=== PATIENT | male | born 1980 | race Caucasian/White ===

== ENCOUNTER 2020-11-13 22:13 | Inpatient (IN) | payer OTHER ==
[~2020-11-13] VITALS: Ht 172.7 cm; Wt 99.2 kg
[2020-11-13 22:42] LABS: BASOPHILS ABSOLUTE AUTO 0.05 K/mm3 (0.00-0.23); BASOPHILS PERCENT AUTO 0 % (0-2); EOSINOPHILS PERCENT AUTO 2 % (0-6); Hematocrit 43.6 % (37.0-53.0); IMMATURE GRAN ABSOLUTE AUTO 0.06 K/mm3 (0.00-0.10); IMMATURE GRAN PERCENT AUTO 1 % (0-1); LYMPHOCYTES ABSOLUTE AUTO 2.03 K/mm3 (0.84-5.20); LYMPHOCYTES PERCENT AUTO 18 % (21-46); MONOCYTES ABSOLUTE AUTO 0.46 K/mm3 (0.16-1.47); MONOCYTES PERCENT AUTO 4 % (4-13); Mean Corpuscular HGB 27.7 pg (26.0-34.0); Mean Corpuscular HGB Conc 32.1 g/dL (31.5-36.5); Mean Corpuscular Volume 86 fL (80-100); Mean Platelet Volume 12.3 fL (9.1-12.4); NEUTROPHILS ABSOLUTE AUTO 8.46 K/mm3 (1.96-9.15); NEUTROPHILS PERCENT AUTO 75 % (41-73); Platelet Count 208 K/mm3 (150-400); RDW Standard Deviation 40.9 fL (35.1-46.3); Red Blood Cell Count 5.05 M/mm3 (4.30-5.90); White Blood Cell Count 11.26 K/mm3 (4.00-11.30)
[2020-11-13 22:57] LABS: Alanine Aminotransfer (ALT/SGP 75 U/L (12-78); Albumin, Blood 3.4 g/dL (3.4-5.0); Alk Phos 79 U/L (50-136); Anion Gap 8 mmol/L (6-16); Aspartate Aminotrans (AST/SGOT 54 U/L (12-37); Bilirubin, Total 0.7 mg/dL (0.1-1.0); Blood Urea Nitrogen 16 mg/dL (8-24); Bun/Creatinine Ratio 13.6 (12.0-20.0); CO2, Blood 26 mmol/L (21-32); Calcium, Blood 8.1 mg/dL (8.5-10.1); Chloride, Blood 105 mmol/L (98-108); Creatinine, Blood 1.18 mg/dL (0.60-1.20); Ethanol (Alcohol), Blood, Med <3 mg/dL; Globulin, Blood 3.4 g/dL (2.2-4.0); Glomerular Filtration Rate >60 (60-); Glucose, Blood 252 mg/dL (70-99); Potassium, Blood 3.6 mmol/L (3.5-5.5); Salicylate <1.7 mg/dL (2.8-20.0); Sodium, Blood 139 mmol/L (136-145); Total Protein, Blood 6.8 g/dL (6.4-8.2)
[2020-11-13 23:10] LABS: Acetaminophen, Random <2.0 ug/mL (10.0-30.0)
[2020-11-13 23:46] LABS: CPK Creatine Kinase 201 U/L (39-308)
[2020-11-14 00:22] LABS: Influenza A, PCR NEGATIVE (NEGATIVE); Influenza B, PCR NEGATIVE (NEGATIVE); Resp Syncytial Virus, PCR NEGATIVE (NEGATIVE); SARS-Cov-2 (COVID-19) PCR, MMC NEGATIVE (NEGATIVE)
--- NOTE | 2020-11-14 02:30 | NUR ---
PT ADMITTED TO ICU 13, FROM ER FOR POSSIBLE UNINTENTIONAL OD. PT SISTER LI IS W PT AND HELPED W ADMIT PROCESS, PT DRIFTS OF TO SLEEP DURING CONVERSATION. PT AROUSES TO VOICE, ORIENTED TO HOSP, BUT DOESNT REMEMBER WHAT HAPPENED, DOES NOT ADMIT TO INGESTING ANY MEDS. ON 2L NC, VSS, MONITOR SHOWS NSR. CO EXTREME THIRST, STATES "I'M SO THIRSTY I'M GOING TO THROW UP" EXPLAINED TO PT IMPORTANCE OF AIRWAY SAFETY, CONCERN THAT HE ASPIRATED EARLIER IN DAY. ICE CHIPS GIVEN. BED ALARM ENGAGED FOR PT SAFETY.
--- NOTE | 2020-11-14 06:00 | NUR ---
PT ALERT, DOESNT REMEMBER EARLIER EVENTS, GIVEN CUP OF ICE WATER. VSS, [address] GONZALEZ IN TO SEE PT AND DIET ORDERED, AND STATUS CHANGED. WILL REPORT TO DAY SHIFT.
[2020-11-14 06:11] LABS: Source, Urine Catheter
[2020-11-14 06:17] LABS: Bilirubin, Urine Neg (Neg); Blood, Urine Neg (Neg); Glucose Qualitative, Urine 3+ (Neg); Ketones, Urine Neg (Neg); Leukocyte Esterase, Urine 1+ (Neg); Nitrite, Urine Neg (Neg); Protein, Urine 2+ (Neg); Specific Gravity, Urine 1.025 (1.003-1.022); Urobilinogen, Urine NORM (Normal)
[2020-11-14 06:35] LABS: Appearance, Urine Clear (Clear); Color, Urine Yellow (P-Yellow)
[2020-11-14 06:37] LABS: Bacteria Mod /hpf; Red Blood Cells, Urine 0-2 /hpf (0-2); Squamous Epithelial Cells Rare /hpf (Few)
[2020-11-14 06:38] LABS: U Amphetamine Screen DETECTED; U Barbituate Screen Not Detected; U Benzodiazapine Screen DETECTED; U Cannabinoids Screen Not Detected; U Cocaine Screen Not Detected; U Methadone Screen Not Detected; U Methamphetamine Screen DETECTED; U Opiates Screen Not Detected; U Phencyclidine Screen Not Detected
[2020-11-14 06:39] LABS: U Buprenorphine Screen Not Detected; U Oxycodone Screen Not Detected; U Propoxyphene Screen Not Detected
[2020-11-14 07:00] LABS: BASOPHILS ABSOLUTE AUTO 0.05 K/mm3 (0.00-0.23); BASOPHILS PERCENT AUTO 0 % (0-2); EOSINOPHILS ABSOLUTE AUTO 0.01 K/mm3 (0.00-0.68); EOSINOPHILS PERCENT AUTO 0 % (0-6); Hematocrit 45.8 % (37.0-53.0); IMMATURE GRAN ABSOLUTE AUTO 0.09 K/mm3 (0.00-0.10); IMMATURE GRAN PERCENT AUTO 1 % (0-1); LYMPHOCYTES ABSOLUTE AUTO 0.82 K/mm3 (0.84-5.20); LYMPHOCYTES PERCENT AUTO 4 % (21-46); MONOCYTES ABSOLUTE AUTO 0.88 K/mm3 (0.16-1.47); MONOCYTES PERCENT AUTO 5 % (4-13); Mean Corpuscular HGB 28.4 pg (26.0-34.0); Mean Corpuscular HGB Conc 32.8 g/dL (31.5-36.5); Mean Corpuscular Volume 87 fL (80-100); Mean Platelet Volume 11.7 fL (9.1-12.4); NEUTROPHILS ABSOLUTE AUTO 17.34 K/mm3 (1.96-9.15); NEUTROPHILS PERCENT AUTO 90 % (41-73); Platelet Count 221 K/mm3 (150-400); RDW Coefficient Variation 13.2 % (11.7-14.2); RDW Standard Deviation 41.1 fL (35.1-46.3); Red Blood Cell Count 5.28 M/mm3 (4.30-5.90); White Blood Cell Count 19.19 K/mm3 (4.00-11.30)
--- NOTE | 2020-11-14 07:14 | NUR ---
Received report from Arnoldo IRENE. Patient is awake in bed and first thing ask for water and took him a cup. He is on RA and sats >90%. He is alert and oriented and is able to communicate all answers and communicate his needs. He has bilateral 20ga IV's in AC's. He is having NS at 75 infusing in RAC. He has urinal at bedside and is able to use appropriately. He denies trying to overdose on any meds and remembers very little of event.
[2020-11-14 07:22] LABS: Alanine Aminotransfer (ALT/SGP 69 U/L (12-78); Albumin, Blood 3.3 g/dL (3.4-5.0); Albumin/Globulin Ratio 0.9 (0.8-1.8); Alk Phos 76 U/L (50-136); Anion Gap 5 mmol/L (6-16); Aspartate Aminotrans (AST/SGOT 38 U/L (12-37); Blood Urea Nitrogen 14 mg/dL (8-24); Bun/Creatinine Ratio 17.1 (12.0-20.0); CO2, Blood 26 mmol/L (21-32); Chloride, Blood 109 mmol/L (98-108); Creatinine, Blood 0.82 mg/dL (0.60-1.20); Globulin, Blood 3.7 g/dL (2.2-4.0); Glomerular Filtration Rate >60 (60-); Glucose, Blood 114 mg/dL (70-99); Potassium, Blood 4.3 mmol/L (3.5-5.5); Sodium, Blood 140 mmol/L (136-145)
--- NOTE | 2020-11-14 09:57 | NUR ---
Patient has been resting in room after breakfast that he tolerated 100%. VSS. Dr Ram by and saw patient and asked for Psych to come by vipul elliott. Patient remaisn cooperative and communicable with care.
--- NOTE | 2020-11-14 12:00 | NUR ---
Patient sitting up in bed tolerating lunch. Andra Sharma in room doing safety contract. He has been pleasant and cooperative. Denies any needs.
--- NOTE | 2020-11-14 16:07 | NUR ---
Dr Mcdowell in room with patient and he is being cooperative with tx. NS at 75 ml/hr with intermitent Abx. He is tolerating liquids and food well. Mostly sleeping t/o day.
--- NOTE | 2020-11-14 17:19 | NUR ---
PT RECEIVED FROM ICU ARLET TRIPATHI. STATES TIRED. TO ROOM 1650 REPORT RECEIVED FROM ANTHONY KLINE RN PRIOR TO TRANSFER.
--- NOTE | 2020-11-14 18:15 | NUR ---
PT PLEASANT SINCE TRANSFER TO ROOM FROM ICU. HAS SLEPT SOME. AWAKENS EASILY. ATE FULL PLATE FOOD FOR DINNER. REQUESTED SECOND HELPING. ORDERED. BED IN LOW POSITION, CALL LITE IN REACH, CALLS APPROP
[2020-11-15 05:02] LABS: BASOPHILS ABSOLUTE AUTO 0.06 K/mm3 (0.00-0.23); BASOPHILS PERCENT AUTO 0 % (0-2); EOSINOPHILS ABSOLUTE AUTO 0.18 K/mm3 (0.00-0.68); EOSINOPHILS PERCENT AUTO 1 % (0-6); Hematocrit 39.5 % (37.0-53.0); Hemoglobin 13.1 g/dL (13.5-17.5); IMMATURE GRAN ABSOLUTE AUTO 0.06 K/mm3 (0.00-0.10); IMMATURE GRAN PERCENT AUTO 0 % (0-1); LYMPHOCYTES ABSOLUTE AUTO 2.13 K/mm3 (0.84-5.20); LYMPHOCYTES PERCENT AUTO 15 % (21-46); MONOCYTES ABSOLUTE AUTO 0.85 K/mm3 (0.16-1.47); MONOCYTES PERCENT AUTO 6 % (4-13); Mean Corpuscular HGB 28.1 pg (26.0-34.0); Mean Corpuscular HGB Conc 33.2 g/dL (31.5-36.5); Mean Corpuscular Volume 85 fL (80-100); Mean Platelet Volume 12.1 fL (9.1-12.4); NEUTROPHILS ABSOLUTE AUTO 10.83 K/mm3 (1.96-9.15); NEUTROPHILS PERCENT AUTO 77 % (41-73); Platelet Count 224 K/mm3 (150-400); RDW Coefficient Variation 13.2 % (11.7-14.2); RDW Standard Deviation 40.8 fL (35.1-46.3); Red Blood Cell Count 4.66 M/mm3 (4.30-5.90); White Blood Cell Count 14.11 K/mm3 (4.00-11.30)
[2020-11-15 05:22] LABS: Albumin, Blood 2.9 g/dL (3.4-5.0); Anion Gap 7 mmol/L (6-16); Blood Urea Nitrogen 14 mg/dL (8-24); Bun/Creatinine Ratio 14.7 (12.0-20.0); CO2, Blood 27 mmol/L (21-32); Calcium, Blood 8.2 mg/dL (8.5-10.1); Chloride, Blood 105 mmol/L (98-108); Creatinine, Blood 0.95 mg/dL (0.60-1.20); Glomerular Filtration Rate >60 (60-); Glucose, Blood 101 mg/dL (70-99); Phosphorus, Blood 2.3 mg/dL (2.5-4.9); Potassium, Blood 3.7 mmol/L (3.5-5.5); Sodium, Blood 139 mmol/L (136-145)
--- NOTE | 2020-11-15 05:47 | NUR ---
CUSTOMS OFFICER SUMMARY PT AAOX4 AND PLEASANT. HAS BEEN TIRED AND SLEPT MOST OF THE SHIFT. DENIES PAIN, SOB, N/V. FINISHED 1.5L OF NS PER ORDERS. PT REPORTS SOME NUMBNESS AND SWELLING OF BILATERAL HANDS. PT STATES THIS SOMETIMES HAPPENS WHEN HE HAS IV'S PLACED. CONTINUES IV UNASYN Q6H. SLIGHT IMPROVEMENT OF WBC FROM 19K TO 14K. VSS, WILL CONTINUE TO MONITOR.
[2020-11-15] MEDS ORDERED: AMOCLA875 PO (11:35)
[2020-11-15] MEDS ORDERED: VISBIOME 112.51 EACH PO (11:35)
--- NOTE | 2020-11-15 14:14 | NUR ---
PT DISCHARGED FROM THE UNIT IV REMOVED. DISCHARGE INSTRUCTIONS REVIEWED. MEDICATIONS FAXED TO PHARMACY. PT HAS APT SCHEDULED WITH A NEW CARE PROVIDER.
== END 2020-11-15 14:55 | disposition home or self-care (01) | DRG 917 ==
LOC: ER 22:13 → ICUW 22:14 → MEDS 11-14 14:51 → ICUW 11-14 14:52 → MEDS 11-14 16:57
PROVIDERS: Emergency Medicine; Family Medicine; ADMIT Internal Medicine
PROC: 3E0234Z Introduction of Serum, Toxoid and Vaccine into Muscle, Percutaneous Approach (ICD-10-PCS; principal; 2020-11-13)
DX: T40.2X1A Poisoning by other opioids, accidental (unintentional), initial encounter (principal); A41.9 Sepsis, unspecified organism; J69.0 Pneumonitis due to inhalation of food and vomit; J96.01 Acute respiratory failure with hypoxia; J18.9 Pneumonia, unspecified organism; G12.21 Amyotrophic lateral sclerosis; F17.210 Nicotine dependence, cigarettes, uncomplicated; Z90.49 Acquired absence of other specified parts of digestive tract; R73.9 Hyperglycemia, unspecified; Z20.822 Contact with and (suspected) exposure to COVID-19; Z23 Encounter for immunization
CPT/HCPCS: 0241U; 36415; 71045; 80053; 80069; 81001; 82550; 83036; 83605; 83880; 85025; 87086; 93005; 93010; 96360; 96374; 96376; 99285-25; A9270; A9270-GY; G0378; G0480; J0295; J1650; J2310; J7030

== ENCOUNTER 2022-01-02 10:57 | Emergency (ER) | payer OTHER ==
[~2022-01-02] VITALS: Ht 172.7 cm; Wt 95.2 kg
[~2022-01-02 10:57] MED LIST: AMOCLA875 PO; VISBIOME 112.51 EACH PO
[2022-01-02 11:32] LABS: BASOPHILS ABSOLUTE AUTO 0.06 K/mm3 (0.00-0.23); BASOPHILS PERCENT AUTO 1 % (0-2); EOSINOPHILS ABSOLUTE AUTO 0.12 K/mm3 (0.00-0.68); EOSINOPHILS PERCENT AUTO 2 % (0-6); Hematocrit 44.4 % (37.0-53.0); Hemoglobin 14.9 g/dL (13.5-17.5); IMMATURE GRAN ABSOLUTE AUTO 0.02 K/mm3 (0.00-0.10); IMMATURE GRAN PERCENT AUTO 0 % (0-1); LYMPHOCYTES ABSOLUTE AUTO 2.16 K/mm3 (0.84-5.20); LYMPHOCYTES PERCENT AUTO 28 % (21-46); MONOCYTES ABSOLUTE AUTO 0.66 K/mm3 (0.16-1.47); MONOCYTES PERCENT AUTO 8 % (4-13); Mean Corpuscular HGB 28.5 pg (26.0-34.0); Mean Corpuscular HGB Conc 33.6 g/dL (31.5-36.5); Mean Corpuscular Volume 85 fL (80-100); NEUTROPHILS ABSOLUTE AUTO 4.81 K/mm3 (1.96-9.15); NEUTROPHILS PERCENT AUTO 61 % (41-73); Platelet Count 265 K/mm3 (150-400); RDW Standard Deviation 40.5 fL (35.1-46.3); Red Blood Cell Count 5.23 M/mm3 (4.30-5.90); White Blood Cell Count 7.83 K/mm3 (4.00-11.30)
[2022-01-02 11:50] LABS: Alanine Aminotransfer (ALT/SGP 37 U/L (12-78); Albumin, Blood 3.8 g/dL (3.4-5.0); Alk Phos 82 U/L (50-136); Anion Gap 7 mmol/L (6-16); Aspartate Aminotrans (AST/SGOT 19 U/L (12-37); Bilirubin, Total 0.5 mg/dL (0.1-1.0); Blood Urea Nitrogen 12 mg/dL (8-24); Bun/Creatinine Ratio 13.1 (12.0-20.0); CO2, Blood 28 mmol/L (21-32); Chloride, Blood 104 mmol/L (98-108); Creatinine, Blood 0.91 mg/dL (0.60-1.20); Globulin, Blood 3.7 g/dL (2.2-4.0); Glomerular Filtration Rate >60 (60-); Glucose, Blood 109 mg/dL (70-99); Potassium, Blood 4.1 mmol/L (3.5-5.5); Sodium, Blood 139 mmol/L (136-145); Total Protein, Blood 7.5 g/dL (6.4-8.2)
== END 2022-01-02 15:37 | disposition home or self-care (01) ==
LOC: ER 10:57
PROVIDERS: Physician Assistant
DX: R07.89 Other chest pain (principal); R06.02 Shortness of breath; R42 Dizziness and giddiness; F17.200 Nicotine dependence, unspecified, uncomplicated; Z91.038 Other insect allergy status; Z91.018 Allergy to other foods
CPT/HCPCS: 36415; 71046; 80053; 84484; 85025; 93005; 93010; 99285-25

== ENCOUNTER 2024-11-13 01:46 | Emergency (ER) | payer OTHER ==
[~2024-11-13] VITALS: Ht 172.7 cm; Wt 90.7 kg
[2024-11-13 01:54] VITALS: BP 144/82
[2024-11-13] MEDS ORDERED: Ipratropium/Albuterol SulF 2.5-0.5MG/3 ML Amp INH ONE (02:00)
[2024-11-13 02:22] LABS: CORONAVIRUS COVID-19 AG Negative (NEGATIVE); INFLUENZA A AG Negative (NEGATIVE); INFLUENZA B AG Negative (NEGATIVE)
[2024-11-13 03:24] LABS: Source, Urine Clean Catch
[2024-11-13 03:26] LABS: Appearance, Urine Hazy (Clear); Blood, Urine 5+ (Neg); Color, Urine Amber (P-Yellow); Glucose Qualitative, Urine Neg (Neg); Ketones, Urine Neg (Neg); Leukocyte Esterase, Urine 2+ (Neg); Nitrite, Urine Pos (Neg); Protein, Urine 3+ (Neg); Urobilinogen, Urine 4+ (Normal)
[2024-11-13 03:28] LABS: Bilirubin, Urine 3+ (Neg)
[2024-11-13 03:49] LABS: Bacteria Few /hpf; Squamous Epithelial Cells Rare /hpf (Few)
[2024-11-13 03:50] LABS: BASOPHILS ABSOLUTE AUTO 0.04 K/mm3 (0.00-0.23); BASOPHILS PERCENT AUTO 1 % (0-2); EOSINOPHILS ABSOLUTE AUTO 0.06 K/mm3 (0.00-0.68); EOSINOPHILS PERCENT AUTO 1 % (0-6); Hematocrit 42.8 % (37.0-53.0); Hemoglobin 14.9 g/dL (13.5-17.5); IMMATURE GRAN ABSOLUTE AUTO 0.07 K/mm3 (0.00-0.10); IMMATURE GRAN PERCENT AUTO 1 % (0-1); LYMPHOCYTES ABSOLUTE AUTO 0.77 K/mm3 (0.84-5.20); LYMPHOCYTES PERCENT AUTO 11 % (21-46); MONOCYTES PERCENT AUTO 9 % (4-13); Mean Corpuscular HGB 28.1 pg (26.0-34.0); Mean Corpuscular HGB Conc 34.8 g/dL (31.5-36.5); Mean Corpuscular Volume 81 fL (80-100); NEUTROPHILS ABSOLUTE AUTO 5.31 K/mm3 (1.96-9.15); NEUTROPHILS PERCENT AUTO 78 % (41-73); RDW Standard Deviation 38.2 fL (35.1-46.3); White Blood Cell Count 6.85 K/mm3 (4.00-11.30)
[2024-11-13 03:56] LABS: International Normalized Ratio 1.02; Prothrombin Time Results 10.9 Sec (9.7-11.5)
[2024-11-13 04:05] LABS: Albumin, Blood 3.2 g/dL (3.4-5.0); Albumin/Globulin Ratio 0.7 (0.8-1.8); Bilirubin, Direct 1.5 mg/dL (0.0-0.3); Bilirubin, Total 2.2 mg/dL (0.1-1.0); Bun/Creatinine Ratio 8.7 (12.0-20.0); Calcium, Blood 8.5 mg/dL (8.5-10.1); Creatinine, Blood 1.04 mg/dL (0.60-1.20); Globulin, Blood 4.3 g/dL (2.2-4.0); Potassium, Blood 4.1 mmol/L (3.5-5.5); Total Protein, Blood 7.5 g/dL (6.4-8.2)
[2024-11-13] MEDS ORDERED: RX Prepack Albuterol 1 PREPACK/6.7 GM INH UD ONE (04:25)
[2024-11-14 16:43] LABS: HIV 1,2 COMBO ANTIGEN/ANTIBODY Negative (Negative)
[2024-11-14 17:42] LABS: HEPATITIS A ANTIBODY, IGM Negative (Negative); HEPATITIS B CORE ANTIBODY, IGM Negative (Negative); HEPATITIS B SURFACE ANTIGEN Negative (Negative); HEPATITIS C AB CIA INTERP Negative (Negative); HEPATITIS C ANTIBODY CIA INDEX 0.15 IV
== END 2024-11-13 04:47 | disposition home or self-care (01) ==
LOC: ER 01:46
PROVIDERS: Emergency Medicine
DX: B17.9 Acute viral hepatitis, unspecified (principal); B34.9 Viral infection, unspecified; R74.01 Elevation of levels of liver transaminase levels; R06.2 Wheezing; F17.200 Nicotine dependence, unspecified, uncomplicated; Z91.038 Other insect allergy status; Z91.018 Allergy to other foods
CPT/HCPCS: 71045; 80053; 80074; 81001; 82248; 85025; 85610; 86308; 87086; 87389; 87428-QW; 94640; 94664; 99284-25; A9270

== ENCOUNTER 2024-11-21 05:00 | Emergency (ER) | payer OTHER ==
[~2024-11-21] VITALS: Ht 177.8 cm; Wt 81.7 kg
[2024-11-21] MEDS ORDERED: Morphine Sulfate 4 MG/1 ML Injection IV ONE (05:30)
[2024-11-21] MEDS ORDERED: Ondansetron HCl 2 MG / ML 2ML Vial IV ONE (05:30)
[2024-11-21 05:34] LABS: BASOPHILS PERCENT AUTO 1 % (0-2); EOSINOPHILS ABSOLUTE AUTO 0.18 K/mm3 (0.00-0.68); EOSINOPHILS PERCENT AUTO 1 % (0-6); Hematocrit 39.4 % (37.0-53.0); Hemoglobin 13.2 g/dL (13.5-17.5); IMMATURE GRAN ABSOLUTE AUTO 0.37 K/mm3 (0.00-0.10); IMMATURE GRAN PERCENT AUTO 2 % (0-1); LYMPHOCYTES ABSOLUTE AUTO 1.98 K/mm3 (0.84-5.20); LYMPHOCYTES PERCENT AUTO 13 % (21-46); MONOCYTES ABSOLUTE AUTO 0.89 K/mm3 (0.16-1.47); MONOCYTES PERCENT AUTO 6 % (4-13); Mean Corpuscular HGB 28.5 pg (26.0-34.0); Mean Corpuscular HGB Conc 33.5 g/dL (31.5-36.5); Mean Corpuscular Volume 85 fL (80-100); Mean Platelet Volume 10.1 fL (9.1-12.4); NEUTROPHILS ABSOLUTE AUTO 12.38 K/mm3 (1.96-9.15); NEUTROPHILS PERCENT AUTO 78 % (41-73); Platelet Count 551 K/mm3 (150-400); RDW Coefficient Variation 14.2 % (11.7-14.2); RDW Standard Deviation 43.7 fL (35.1-46.3); Red Blood Cell Count 4.63 M/mm3 (4.30-5.90)
[2024-11-21 06:16] LABS: Albumin, Blood 3.1 g/dL (3.4-5.0); Albumin/Globulin Ratio 0.7 (0.8-1.8); Bilirubin, Total 0.6 mg/dL (0.1-1.0); Bun/Creatinine Ratio 15.9 (12.0-20.0); Calcium, Blood 8.8 mg/dL (8.5-10.1); Creatinine, Blood 1.45 mg/dL (0.60-1.20); Globulin, Blood 4.3 g/dL (2.2-4.0); Potassium, Blood 4.5 mmol/L (3.5-5.5); Total Protein, Blood 7.4 g/dL (6.4-8.2)
[2024-11-21 07:40] LABS: Source, Urine Voided
[2024-11-21 07:50] LABS: Appearance, Urine Clear (Clear); Bilirubin, Urine Neg (Neg); Blood, Urine 2+ (Neg); Color, Urine Yellow (P-Yellow); Glucose Qualitative, Urine Neg (Neg); Ketones, Urine Neg (Neg); Leukocyte Esterase, Urine Neg (Neg); Nitrite, Urine Neg (Neg); Protein, Urine Neg (Neg); Urobilinogen, Urine NORM (Normal)
[2024-11-21 07:56] LABS: Bacteria Not Seen /hpf; Hyaline Casts 0-2 /lpf (0-2); Squamous Epithelial Cells Rare /hpf (Few); White Blood Cells, Urine 0-2 /hpf (0-5)
[2024-11-21 08:00] VITALS: BP 139/87
== END 2024-11-21 08:13 | disposition home or self-care (01) ==
LOC: ER 05:00
PROVIDERS: Emergency Medicine
DX: R10.30 Lower abdominal pain, unspecified (principal); F17.200 Nicotine dependence, unspecified, uncomplicated; Z91.030 Bee allergy status; Z91.018 Allergy to other foods; Z79.899 Other long term (current) drug therapy
CPT/HCPCS: 74177; 80053; 81001; 83690; 85025; 93005; 93010; 96374-59; 96375; 99285-25; J2270; J2405; Q9967

== ENCOUNTER 2025-03-29 17:12 | Inpatient (IN) | payer OTHER ==
[~2025-03-29] VITALS: Ht 172.7 cm; Wt 75.5 kg
[2025-03-29 18:08] LABS: BASOPHILS ABSOLUTE AUTO 0.10 K/mm3 (0.00-0.23); BASOPHILS PERCENT AUTO 1 % (0-2); EOSINOPHILS ABSOLUTE AUTO 0.06 K/mm3 (0.00-0.68); EOSINOPHILS PERCENT AUTO 0 % (0-6); Hematocrit 38.6 % (37.0-53.0); Hemoglobin 13.1 g/dL (13.5-17.5); IMMATURE GRAN ABSOLUTE AUTO 0.55 K/mm3 (0.00-0.10); IMMATURE GRAN PERCENT AUTO 4 % (0-1); LYMPHOCYTES ABSOLUTE AUTO 1.90 K/mm3 (0.84-5.20); LYMPHOCYTES PERCENT AUTO 13 % (21-46); MONOCYTES ABSOLUTE AUTO 1.41 K/mm3 (0.16-1.47); MONOCYTES PERCENT AUTO 10 % (4-13); Mean Corpuscular HGB Conc 33.9 g/dL (31.5-36.5); Mean Corpuscular Volume 85 fL (80-100); NEUTROPHILS ABSOLUTE AUTO 10.64 K/mm3 (1.96-9.15); NEUTROPHILS PERCENT AUTO 73 % (41-73); NRBC ABSOLUTE 0.00 K/mm3 (0.00-0.02); NRBC Auto 0.0 /100 WBC (0.0-0.2); Platelet Count 258 K/mm3 (150-400); RDW Coefficient Variation 13.0 % (11.7-14.2); RDW Standard Deviation 40.1 fL (35.1-46.3)
[2025-03-29] MEDS ORDERED: CefTRIAXone Sodium 1,000 MG in NS 100 ML IV ONE (19:40)
[2025-03-29 20:00] LABS: Alanine Aminotransfer (ALT/SGP 22.0 U/L (12-78); Albumin, Blood 2.1 g/dL (3.4-5.0); Albumin/Globulin Ratio 0.4 (0.8-1.8); Anion Gap 12.0 mmol/L (3-11); Aspartate Aminotrans (AST/SGOT 15.0 U/L (12-37); Bilirubin, Total 0.9 mg/dL (0.1-1.0); Blood Urea Nitrogen 17.0 mg/dL (8-24); CO2, Blood 22.0 mmol/L (21-32); Calcium, Blood 8.9 mg/dL (8.5-10.1); Chloride, Blood 102.0 mmol/L (98-108); Creatinine, Blood 1.0 mg/dL (0.60-1.20); Globulin, Blood 5.9 g/dL (2.2-4.0); Glucose, Blood 106.0 mg/dL (70-99); Potassium, Blood 4.4 mmol/L (3.5-5.5); Sodium, Blood 132.0 mmol/L (136-145); Total Protein, Blood 8.0 g/dL (6.4-8.2)
--- NOTE | 2025-03-29 23:12 | NUR ---
ADMISSION NOTE PT ARRIVED TO RM [id number] AT 2312. TELE VERIFIED. EXPLAINED CALL LIGHT TO PT, PT VERBALIZED UNDERSTANDING. THIS RN TO ASSUME CARE.
[2025-03-29 23:21] VITALS: BP 120/83
[2025-03-30 04:06] VITALS: BP 133/74
--- NOTE | 2025-03-30 05:12 | NUR ---
SHIFT SUMMARY PT HERE FOR SEPSIS AND PNA. HE ARRIVED AT 2312, AND HAS BEEN RESTING COMFORTABLY SINCE. HE HAS BEEN AOX4, CALM AND COOPERATIVE. HE HAS CALLED APPROPRIATELY. PT HAS BEEN ON TELE, W/ NO EVENTS OVERNIGHT. HE HAS BEEN ON RA, W/ SATS ABOVE 90%. HE ALSO HAS CONT PULSE OX ON. PT HAS BEEN INDEPENDENT IN . HE HAS HAD NO COMPLAINTS OVERNIGHT. HE HAS HAD UNEVENTFUL NIGHT.
[2025-03-30 07:17] LABS: Hematocrit 37.9 % (37.0-53.0); Hemoglobin 12.4 g/dL (13.5-17.5); Mean Corpuscular HGB Conc 32.7 g/dL (31.5-36.5); Mean Corpuscular Volume 86 fL (80-100); NRBC ABSOLUTE 0.00 K/mm3 (0.00-0.02); NRBC Auto 0.0 /100 WBC (0.0-0.2); Platelet Count 242 K/mm3 (150-400); RDW Coefficient Variation 13.2 % (11.7-14.2); RDW Standard Deviation 41.4 fL (35.1-46.3)
[2025-03-30 07:38] LABS: BAND PERCENT MAN 1 % (0-8); BASOPHILS ABSOLUTE MAN 0.12 K/mm3 (0.00-0.23); BASOPHILS PERCENT MAN 1 % (0-2); EOSINOPHILS ABSOLUTE MAN 0.12 K/mm3 (0.00-0.68); EOSINOPHILS PERCENT MAN 1 % (0-6); LYMPHOCYTES ABSOLUTE MAN 1.59 K/mm3 (0.84-5.20); LYMPHOCYTES PERCENT MAN 13 % (21-46); METAMYELOCYTE ABSOLUTE MAN 0.49 K/mm3 (0.00-0.00); METAMYELOCYTE PERCENT MAN 4 % (0-0); MONOCYTES ABSOLUTE MAN 1.71 K/mm3 (0.16-1.47); MONOCYTES PERCENT MAN 14 % (4-13); Magnesium, Blood 2.5 mg/dL (1.6-2.4); NEUTROPHILS ABSOLUTE MAN 8.22 K/mm3 (1.96-9.15); SEG NEUTROPHILS PERCENT MAN 66 % (41-73)
[2025-03-30 07:48] VITALS: BP 118/69
[2025-03-30 08:46] LABS: Alanine Aminotransfer (ALT/SGP 19.0 U/L (12-78); Albumin/Globulin Ratio 0.4 (0.8-1.8); Anion Gap 10.0 mmol/L (3-11); Aspartate Aminotrans (AST/SGOT 12.0 U/L (12-37); Bilirubin, Total 0.4 mg/dL (0.1-1.0); Blood Urea Nitrogen 16.0 mg/dL (8-24); CO2, Blood 25.0 mmol/L (21-32); Calcium, Blood 8.8 mg/dL (8.5-10.1); Chloride, Blood 104.0 mmol/L (98-108); Creatinine, Blood 0.84 mg/dL (0.60-1.20); Globulin, Blood 5.7 g/dL (2.2-4.0); Glucose, Blood 117.0 mg/dL (70-99); Potassium, Blood 3.6 mmol/L (3.5-5.5); Sodium, Blood 135.0 mmol/L (136-145); Total Protein, Blood 7.9 g/dL (6.4-8.2)
[2025-03-30 08:48] LABS: Albumin, Blood 2.2 g/dL (3.4-5.0)
[2025-03-30] MEDS ORDERED: Lactobacil 2-S.Thermo-Bifido 1 1 Cap PO SCH (09:00)
[2025-03-30 16:06] VITALS: BP 128/74
--- NOTE | 2025-03-30 17:32 | NUR ---
SHIFT SUMMARY PATIENT A/OX4, ABLE TO MAKE NEEDS KNOWN. PLEASANT AND COOPERATIVE WITH STAFF, FLAT AFFECT AND PATIENT LETHARGIC, SLEEPING MOST OF THE SHIFT. PATIENT CONTINUES WITH IV ABX PER OCT. DR. WEBER ORDERED PATIENT TO USE FLUTTER VALVE Q3 HOURS, PATIENT TOLERATING WELL. DAIPHORETIC, CLAMMY SKIN, PRN CBG CHECKED THIS EVENING 118. TELEMETRY IN PLACE, SINUS ARYTHMIA 80s. PATIENT STATES HE IS LIVING WITH A FRIEND IN [place] AND HAS A PLACE TO STAY, IS NOT UNHOUSED. CONTINUOUS PULSE OX IN PLACE, PATIENT ON ROOM AIR AND SPO2 WNL THROUGHOUT THE DAY. CONTINUES WITH PRODUCTIVE COUGH. NO OTHER CONCERNS AT THIS TIME, WILL CONTINUE TO MONITOR.
[2025-03-30 19:15] VITALS: BP 135/89
[2025-03-30] MEDS ORDERED: CefTRIAXone Sodium 1,000 MG in NS 100 ML IV SCH (21:00)
[2025-03-30 23:00] VITALS: BP 143/94
[2025-03-31 03:14] VITALS: BP 141/79
--- NOTE | 2025-03-31 05:16 | NUR ---
NIGHT SUMMARY: PT AOX4. IND IN ROOM. VOIDING APPROPRIATELY. NEEDING 1-2L NC IN MANAGER SOURCING. ON TELEMETRY AND CONT PULSE OX. CALL LIGHT WITHIN REACH AND BED IN LOW POSITION.
[2025-03-31 07:53] VITALS: BP 123/78
[2025-03-31 08:06] LABS: NRBC ABSOLUTE 0.00 K/mm3 (0.00-0.02); NRBC Auto 0.0 /100 WBC (0.0-0.2); RDW Coefficient Variation 13.4 % (11.7-14.2)
[2025-03-31 08:11] LABS: Hematocrit 39.6 % (37.0-53.0); Hemoglobin 13.2 g/dL (13.5-17.5); Mean Corpuscular HGB Conc 33.3 g/dL (31.5-36.5); Mean Corpuscular Volume 85 fL (80-100); Platelet Count 311 K/mm3 (150-400); RDW Standard Deviation 41.9 fL (35.1-46.3)
[2025-03-31 08:24] LABS: Anion Gap 10.0 mmol/L (3-11); Blood Urea Nitrogen 16.0 mg/dL (8-24); CO2, Blood 26.0 mmol/L (21-32); Calcium, Blood 8.8 mg/dL (8.5-10.1); Chloride, Blood 106.0 mmol/L (98-108); Creatinine, Blood 0.73 mg/dL (0.60-1.20); Glucose, Blood 128.0 mg/dL (70-99); Potassium, Blood 4.5 mmol/L (3.5-5.5); Sodium, Blood 137.0 mmol/L (136-145)
[2025-03-31 08:26] LABS: BASOPHILS ABSOLUTE MAN 0.00 K/mm3 (0.00-0.23); BASOPHILS PERCENT MAN 0 % (0-2); EOSINOPHILS ABSOLUTE MAN 0.22 K/mm3 (0.00-0.68); EOSINOPHILS PERCENT MAN 2 % (0-6); LYMPHOCYTES ABSOLUTE MAN 1.36 K/mm3 (0.84-5.20); LYMPHOCYTES PERCENT MAN 12 % (21-46); METAMYELOCYTE ABSOLUTE MAN 0.34 K/mm3 (0.00-0.00); METAMYELOCYTE PERCENT MAN 3 % (0-0); MONOCYTES ABSOLUTE MAN 1.02 K/mm3 (0.16-1.47); MONOCYTES PERCENT MAN 9 % (4-13); NEUTROPHILS ABSOLUTE MAN 8.40 K/mm3 (1.96-9.15); SEG NEUTROPHILS PERCENT MAN 74 % (41-73)
[2025-03-31 11:29] VITALS: BP 142/89
--- NOTE | 2025-03-31 12:19 | NUR ---
PT REPORTS HE DOES NOT RECALL LAST BM - NO BM CHARTED FOR THIS ADMISSION. PRUNE JUICE PROVIDED. PROVIDER ORDERED SCHEDULED BOWEL CARE TO START AT 1300. PROVIDER WOULD LIKE PT UP IN CHAIR FOR ALL MEALS AND MORE ACTIVITY IN HIS ROOM. PT CURRENTLY SITTING UP IN HIS CHAIR. LUNCH ARRIVING SHORTLY.
[2025-03-31] MEDS ORDERED: Mometasone Furoate Inhaler 220 mcg 14 ACT INH SCH (12:20)
[2025-03-31] MEDS ORDERED: Albuterol HFA200 ACT/6.7 GM INH INH PRN (12:25)
[2025-03-31] MEDS ORDERED: Polyethylene Glycol 3350 17 gm PO SCH (13:00)
[2025-03-31 15:05] VITALS: BP 136/81
--- NOTE | 2025-03-31 17:15 | NUR ---
SHIFT SUMMARY NO ACUTE CHANGES. A/Ox4. VERY LETHARGIC, DIFFICULTY REMAINING AWAKE UNLESS INTERACTING WITH STAFF. BOWEL CARE ADMINISTERED AND PT HAD A LARGE BM - PT DID BECOME FLUSTERED BECAUSE HE WOKE WITH VERY SUDDEN URGE TO HAVE BM AND WAS HOOKED UP TO PULSE OX AND COULD NOT GET TO BATHROOM. PT ATTEMPTING TO JUMP OVER BED AND CUSSING AT STAFF. AFTER BM PT CALM. COOPERATIVE WITH STAFF T/O SHIFT WITH NO AGRESSIVE BEHAVIORS BESIDES ONE DESCRIBED. PT SHOWERED, LINENS CHANGED. GOOD APPETITE. PT CURRENTLY RESTING IN CHAIR. STABLE ON FEET, CALL LIGHT NEAR.
[2025-03-31 19:13] VITALS: BP 132/81
[2025-03-31] MEDS ORDERED: NS 250 ML IV PRN (20:05)
[2025-04-01 04:58] VITALS: BP 141/81
--- NOTE | 2025-04-01 06:43 | NUR ---
SHIFT SUMMARY AT START OF SHIFT, PT SITTING UP IN CHAIR. DECIDED TO GET BACK INTO BED DURING SHIFT REPORT. PT BACK TO CHAIR DURING 2099 MEDICATION PASS. PULSE OX APPLIED. PT SATING AROUND 91% ON ROOM AIR. APPROX 0340, PT BEGAN COUGHING HARD. PT HAD REMOVED PULSE OX AND TURNED OFF ALARM. REAPPLIED, PT WAS SATING 82%. APPLIED 3L O2 VIA NC. PT UP TO 92%. PT ASKED FOR ICE WATER, AND IS CURRENTLY SITTING UP IN HIS CHAIR. EDUCATED PT ON PROPER BREATHING TECHNIQUES. PT STATED HE IS BREATHING THE BEST HE CAN, IT HURTS TO TAKE DEEP BREATHS. PT SLEPT FOR THE REST OF THE SHIFT, WAKING FOR MED PASS AND MORNING VITALS.
[2025-04-01 07:26] VITALS: BP 129/79
[2025-04-01] MEDS ORDERED: Albuterol 2.5 MG/3 ML VIAL INH PRN (08:20)
--- NOTE | 2025-04-01 10:15 | NUR ---
PATIENT BACK FROM XRAY IN ROOM NOW
[2025-04-01 12:41] VITALS: BP 137/74
[2025-04-01 15:44] VITALS: BP 136/67
--- NOTE | 2025-04-01 16:10 | NUR ---
NO ACUTE CHANGES, CONITNUES TO DESAT WHEN SLEEPING, CLEARLY MAKES NEEDS KNOWN, CALL LIGHT WITH IN REACH
[2025-04-01 20:20] VITALS: BP 145/83
[2025-04-02 02:55] VITALS: BP 126/78
[2025-04-02 05:25] LABS: Hematocrit 42.9 % (37.0-53.0); Hemoglobin 14.1 g/dL (13.5-17.5); Mean Corpuscular HGB Conc 32.9 g/dL (31.5-36.5); Mean Corpuscular Volume 85 fL (80-100); NRBC ABSOLUTE 0.00 K/mm3 (0.00-0.02); NRBC Auto 0.0 /100 WBC (0.0-0.2); Platelet Count 476 K/mm3 (150-400); RDW Coefficient Variation 12.9 % (11.7-14.2); RDW Standard Deviation 40.0 fL (35.1-46.3)
[2025-04-02 05:50] LABS: BAND PERCENT MAN 3 % (0-8); BASOPHILS ABSOLUTE MAN 0.00 K/mm3 (0.00-0.23); BASOPHILS PERCENT MAN 0 % (0-2); EOSINOPHILS ABSOLUTE MAN 0.00 K/mm3 (0.00-0.68); EOSINOPHILS PERCENT MAN 0 % (0-6); LYMPHOCYTES % ATYPICAL MANUAL 1 % (0-0); LYMPHOCYTES ABSOLUTE MAN 1.27 K/mm3 (0.84-5.20); LYMPHOCYTES PERCENT MAN 5 % (21-46); MONOCYTES ABSOLUTE MAN 0.21 K/mm3 (0.16-1.47); MONOCYTES PERCENT MAN 1 % (4-13); MYELOCYTE ABSOLUTE MAN 0.63 K/mm3 (0.00-0.00); MYELOCYTE PERCENT MAN 3 % (0-0); NEUTROPHILS ABSOLUTE MAN 19.13 K/mm3 (1.96-9.15); SEG NEUTROPHILS PERCENT MAN 87 % (41-73)
[2025-04-02 05:55] LABS: Alanine Aminotransfer (ALT/SGP 19.0 U/L (12-78); Albumin, Blood 2.2 g/dL (3.4-5.0); Albumin/Globulin Ratio 0.4 (0.8-1.8); Anion Gap 10.0 mmol/L (3-11); Aspartate Aminotrans (AST/SGOT 11.0 U/L (12-37); Bilirubin, Total 0.3 mg/dL (0.1-1.0); Blood Urea Nitrogen 17.0 mg/dL (8-24); CO2, Blood 27.0 mmol/L (21-32); Calcium, Blood 9.0 mg/dL (8.5-10.1); Chloride, Blood 103.0 mmol/L (98-108); Creatinine, Blood 0.77 mg/dL (0.60-1.20); Globulin, Blood 5.5 g/dL (2.2-4.0); Glucose, Blood 139.0 mg/dL (70-99); Potassium, Blood 4.8 mmol/L (3.5-5.5); Sodium, Blood 135.0 mmol/L (136-145); Total Protein, Blood 7.7 g/dL (6.4-8.2)
--- NOTE | 2025-04-02 06:25 | NUR ---
SHIFT SUMMARY AT START OF SHIFT, PT SITTING UP IN HIS BED. PT HAS CONTINUED TO DESAT TO LOW 80 S WITHOUT SUPPLEMENTAL O2. EDUCATED PT ON NEED TO CONTINUE TO WEAR NC TO MAINTAIN O2 SAT. PT VERBALIZED UNDERSTANDING, ALTHOUGH EXPRESSED IRRITATION WITH CONTINUOUS PULSE OX. EDUCATED PT ON NEED FOR CONTINUOUS MONITORING AND MAINTAINING PT SAFETY. PT UNDERSTOOD THIS WELL. PT WBC CLIMBING TO 21.26 THIS AM. HE IS STILL ON 3L O2 VIA NC D/T DESATTING MORE RAPIDLY WITHOUT NC AT THIS POINT (DOWN TO 85%).
[2025-04-02 07:37] VITALS: BP 132/73
[2025-04-02 09:40] LABS: Prothrombin Time Results 11.7 Sec (9.7-11.5)
[2025-04-02] MEDS ORDERED: Enoxaparin 40 MG/0.4 ML SYR SC SCH (15:00)
[2025-04-02 15:02] VITALS: BP 135/78
--- NOTE | 2025-04-02 18:16 | NUR ---
NO ACUTE CHANGES, NO THROACENTESIS TODAY, RADIOLOGIST SAID NO DUE TO SMALL AMOUNT TO EVEN REMOVE, PATIENT REPORTED FEELING BETTER TODAY, SPUTUMN LOOSINING WITH COUGH, CALL LIGHT WITH IN REACH
--- NOTE | 2025-04-03 03:37 | NUR ---
SHIFT SUMMARY: PT IS AOX4. NOACUTE CHANGES THIS SHIFT. PT ABLE TO REPOSITION THEIR SELF IN BED AND MAKE NEEDS KNOWN.
[2025-04-03 04:29] VITALS: BP 129/79
[2025-04-03 05:00] LABS: Hematocrit 41.7 % (37.0-53.0); Hemoglobin 14.0 g/dL (13.5-17.5); Mean Corpuscular HGB Conc 33.6 g/dL (31.5-36.5); Mean Corpuscular Volume 86 fL (80-100); NRBC ABSOLUTE 0.00 K/mm3 (0.00-0.02); NRBC Auto 0.0 /100 WBC (0.0-0.2); Platelet Count 506 K/mm3 (150-400); RDW Coefficient Variation 12.8 % (11.7-14.2); RDW Standard Deviation 39.7 fL (35.1-46.3)
[2025-04-03 05:27] LABS: BAND PERCENT MAN 2 % (0-8); BASOPHILS ABSOLUTE MAN 0.00 K/mm3 (0.00-0.23); BASOPHILS PERCENT MAN 0 % (0-2); EOSINOPHILS ABSOLUTE MAN 0.00 K/mm3 (0.00-0.68); EOSINOPHILS PERCENT MAN 0 % (0-6); LYMPHOCYTES ABSOLUTE MAN 2.96 K/mm3 (0.84-5.20); LYMPHOCYTES PERCENT MAN 10 % (21-46); MONOCYTES ABSOLUTE MAN 1.18 K/mm3 (0.16-1.47); MONOCYTES PERCENT MAN 4 % (4-13); NEUTROPHILS ABSOLUTE MAN 25.49 K/mm3 (1.96-9.15); SEG NEUTROPHILS PERCENT MAN 84 % (41-73)
[2025-04-03 05:28] LABS: Anion Gap 9.0 mmol/L (3-11); Blood Urea Nitrogen 21.0 mg/dL (8-24); CO2, Blood 29.0 mmol/L (21-32); Calcium, Blood 8.9 mg/dL (8.5-10.1); Chloride, Blood 102.0 mmol/L (98-108); Creatinine, Blood 0.79 mg/dL (0.60-1.20); Glucose, Blood 127.0 mg/dL (70-99); Potassium, Blood 4.4 mmol/L (3.5-5.5); Sodium, Blood 136.0 mmol/L (136-145)
[2025-04-03 07:38] VITALS: BP 126/83
[2025-04-03 13:24] VITALS: BP 144/84
[2025-04-03 15:33] VITALS: BP 141/76
--- NOTE | 2025-04-03 17:05 | NUR ---
SHIFT SUMMARY NO ACUTE CHANGES, A/Ox4, ABLE TO MAKE NEEDS KNOWN. INDEPENDENT IN ROOM. PT SLEEPS MAJORITY OF SHIFT - ENCOURAGING PT TO WAKE UP, AMBULATE AND USE FLUTTER VALVE. TREATED FOR PAIN PER EMAR. ON RA T/O SHIFT AND SATNG ABOVE 92% WHEN AWAKE, PT DOES DROP TO 88%-91% WHEN SLEEPING. ON CONTINUOUS PULSE OX. PT CURRENTLY SLEEPING IN BED, WITH BED IN LOWEST POSITION AND CALL LIGHT WITHIN REACH.
[2025-04-03 21:41] VITALS: BP 123/80
[2025-04-04 03:19] VITALS: BP 132/66
--- NOTE | 2025-04-04 05:38 | NUR ---
PT A&OX4, C/0 PAIN IN R LUNG POSTERIOR RIB AREA TYLENOL GOVEN RX. PT ON 2L O2 VIA NC TO KEEP SPO2 ABOVE 90%. PT REPORTS IT FEELS EASIER TO BREATH. PT HAS SLEPT T/O THE NIGHT. NO ACUTE CHANGES NOTED AT THIS TIME.
[2025-04-04 06:01] LABS: BASOPHILS ABSOLUTE AUTO 0.09 K/mm3 (0.00-0.23); BASOPHILS PERCENT AUTO 1 % (0-2); EOSINOPHILS ABSOLUTE AUTO 0.23 K/mm3 (0.00-0.68); EOSINOPHILS PERCENT AUTO 1 % (0-6); Hematocrit 42.6 % (37.0-53.0); Hemoglobin 14.4 g/dL (13.5-17.5); IMMATURE GRAN ABSOLUTE AUTO 0.90 K/mm3 (0.00-0.10); IMMATURE GRAN PERCENT AUTO 5 % (0-1); LYMPHOCYTES ABSOLUTE AUTO 3.48 K/mm3 (0.84-5.20); LYMPHOCYTES PERCENT AUTO 18 % (21-46); MONOCYTES ABSOLUTE AUTO 0.99 K/mm3 (0.16-1.47); MONOCYTES PERCENT AUTO 5 % (4-13); Mean Corpuscular HGB Conc 33.8 g/dL (31.5-36.5); Mean Corpuscular Volume 85 fL (80-100); NEUTROPHILS ABSOLUTE AUTO 13.77 K/mm3 (1.96-9.15); NEUTROPHILS PERCENT AUTO 71 % (41-73); NRBC ABSOLUTE 0.00 K/mm3 (0.00-0.02); NRBC Auto 0.0 /100 WBC (0.0-0.2); Platelet Count 530 K/mm3 (150-400); RDW Coefficient Variation 12.8 % (11.7-14.2); RDW Standard Deviation 39.7 fL (35.1-46.3)
[2025-04-04 06:19] LABS: Anion Gap 8.0 mmol/L (3-11); Blood Urea Nitrogen 20.0 mg/dL (8-24); CO2, Blood 29.0 mmol/L (21-32); Calcium, Blood 8.7 mg/dL (8.5-10.1); Chloride, Blood 102.0 mmol/L (98-108); Creatinine, Blood 0.78 mg/dL (0.60-1.20); Glucose, Blood 111.0 mg/dL (70-99); Potassium, Blood 4.2 mmol/L (3.5-5.5); Sodium, Blood 135.0 mmol/L (136-145)
[2025-04-04 07:25] VITALS: BP 123/83
[2025-04-04 15:15] VITALS: BP 130/73
--- NOTE | 2025-04-04 17:23 | NUR ---
SUMMARY PT INDEPENDENT IN ROOM. STARTED MY SHIFT ON 2L NC OVERNIGHT ONLY. PT WAS SATTING 88% ON ROOM AIR PER [employer] TECHNICIAN NURSE. HAS BEEN ROOM AIR AND MAINTAINING O2 SATS GREATER THAN 90% ON ROOM AIR. PER DR. WEBER POTENTIAL DC TOMORROW PENDING LABWORK AND O2 REQUIREMENT.
[2025-04-04 19:39] VITALS: BP 136/81
[2025-04-05 03:34] VITALS: BP 120/75
--- NOTE | 2025-04-05 04:44 | NUR ---
NIGHT SUMMARY: P[T AOX4, IND IN ROOM, ON ROOM AIR OVERNIGHT. PT ON CONT PULSE NOT REQUIRING O2 OVERNIGHT. PT DENIES ANY PAIN OR SHORTNESS OF BREATH OVERNIGHT. ABLE TO CALL APPROPRIATELY. CALL LIGHT WITHIN REACH AND BED IN LOW POSITION.
[2025-04-05 05:06] LABS: BASOPHILS ABSOLUTE AUTO 0.14 K/mm3 (0.00-0.23); BASOPHILS PERCENT AUTO 1 % (0-2); EOSINOPHILS ABSOLUTE AUTO 0.17 K/mm3 (0.00-0.68); EOSINOPHILS PERCENT AUTO 1 % (0-6); Hematocrit 45.4 % (37.0-53.0); Hemoglobin 14.7 g/dL (13.5-17.5); IMMATURE GRAN ABSOLUTE AUTO 0.85 K/mm3 (0.00-0.10); IMMATURE GRAN PERCENT AUTO 5 % (0-1); LYMPHOCYTES ABSOLUTE AUTO 3.50 K/mm3 (0.84-5.20); LYMPHOCYTES PERCENT AUTO 20 % (21-46); MONOCYTES ABSOLUTE AUTO 0.98 K/mm3 (0.16-1.47); MONOCYTES PERCENT AUTO 6 % (4-13); Mean Corpuscular HGB Conc 32.4 g/dL (31.5-36.5); Mean Corpuscular Volume 86 fL (80-100); NEUTROPHILS ABSOLUTE AUTO 12.00 K/mm3 (1.96-9.15); NEUTROPHILS PERCENT AUTO 68 % (41-73); NRBC ABSOLUTE 0.00 K/mm3 (0.00-0.02); NRBC Auto 0.0 /100 WBC (0.0-0.2); Platelet Count 512 K/mm3 (150-400); RDW Coefficient Variation 12.8 % (11.7-14.2); RDW Standard Deviation 40.2 fL (35.1-46.3)
[2025-04-05 07:39] VITALS: BP 128/72
[2025-04-05] MEDS ORDERED: ALBU90OI INH (10:10)
[2025-04-05] MEDS ORDERED: GUAI600T33 PO (10:10)
[2025-04-05] MEDS ORDERED: MOME220I INH (10:11)
[2025-04-05] MEDS ORDERED: PRED20 PO (10:11)
[2025-04-05] MEDS ORDERED: VISBIOME 112.51 EACH PO (10:12)
[2025-04-05] MEDS ORDERED: CEFP200 PO (10:12)
[2025-04-05] MEDS ORDERED: MASOPHEN325 M3 PO (10:12)
--- NOTE | 2025-04-05 11:08 | NUR ---
DISCHARGE NOTE PATIENT EDUCATED ON DISCHARGE PACKET AND INSTRUCTIONS AND NEW PRESCRIPTION EDUCATION. IV REMOVED. BELONGINGS GATHERED AND RETURNED. NO NEW CONCERNS OR QUESTIONS PRIOR TO DC. PT PREFERRED TO WALK OUT INDEPENDENTLY. PT CALLED FAMILY TO TRANSLATOR/INTERPRETER.
== END 2025-04-05 11:01 | disposition home or self-care (01) | DRG 871 ==
LOC: ER 17:12 → MEDS 21:52
PROVIDERS: Internal Medicine; Student in an Organized Health Care Education/Training Program; ADMIT Student in an Organized Health Care Education/Training Program
DX: A41.9 Sepsis, unspecified organism (principal); J18.9 Pneumonia, unspecified organism; Z59.01 Sheltered homelessness; R04.2 Hemoptysis; J91.8 Pleural effusion in other conditions classified elsewhere; F15.10 Other stimulant abuse, uncomplicated; Z79.2 Long term (current) use of antibiotics; Z90.89 Acquired absence of other organs; Z91.030 Bee allergy status; Z91.018 Allergy to other foods; Z91.038 Other insect allergy status
CPT/HCPCS: 36415; 71046; 71260; 76604; 80048; 80053; 82947; 83605; 83615; 83735; 84145; 84484; 85025; 85610; 87040; 87070; 87205; 87449; 93005; 93010; 94640; 94664; 94760; 94762; 96365; 96374-59; 96375-59; 99285-25; A9270; G0378; J0456; J0696; J1650; J2919; J7050; J7512; Q9967